=== PATIENT | female | born 1975 | race Caucasian/White ===

== ENCOUNTER 2022-12-26 07:34 | Emergency (ER) | payer SELFPAY ==
[2022-12-26] MEDS ORDERED: Dexamethasone 10 MG/ML VIAL ONE (09:08)
== END 2022-12-26 09:15 | disposition home or self-care (01) ==
LOC: BURERS 07:34
DX: J06.9 Acute upper respiratory infection, unspecified (principal)
CPT/HCPCS: 71045; 87804; 96372; J1100

== ENCOUNTER 2023-07-31 10:53 | Emergency (ER) | payer OTHER | END 2023-07-31 11:25 | disposition home or self-care (01) | LOC: BURERS 10:53 | DX: H60.501 Unspecified acute noninfective otitis externa, right ear (principal); I10 Essential (primary) hypertension | CPT/HCPCS: 99282 ==

== ENCOUNTER 2023-08-30 12:18 | Emergency (ER) | payer OTHER | END 2023-08-30 12:49 | disposition home or self-care (01) | LOC: BURERS 12:18 | DX: H92.01 Otalgia, right ear (principal); I10 Essential (primary) hypertension | CPT/HCPCS: 99283 ==

== ENCOUNTER 2023-12-30 10:14 | Emergency (ER) | payer OTHER | END 2023-12-30 10:38 | disposition home or self-care (01) | LOC: BURERS 10:14 | DX: J04.0 Acute laryngitis (principal); J06.9 Acute upper respiratory infection, unspecified; I10 Essential (primary) hypertension | CPT/HCPCS: 99283 ==

== ENCOUNTER 2024-01-29 14:16 | Emergency (ER) | payer OTHER | END 2024-01-29 14:45 | disposition home or self-care (01) | LOC: BURERS 14:16 | DX: J18.0 Bronchopneumonia, unspecified organism (principal); I10 Essential (primary) hypertension | CPT/HCPCS: 99283 ==

== ENCOUNTER 2024-02-07 13:03 | Emergency (ER) | payer OTHER ==
[~2024-02-07 13:03] MED LIST: Iopamidol 370 76% 100 ML VIAL ONE
[2024-02-07] MEDS ORDERED: Ketorolac Tromethamine 30 MG (1 mL) VIAL ONE (13:21)
[2024-02-07 13:36] LABS: #Basophils 0.1 thou/uL (0.0-0.2); #Eosinophils 0.3 thou/uL (0.0-0.7); #Lymphocytes 1.1 thou/uL (1.20-3.40); #Monocytes 0.6 thou/uL (0.11-0.59); #Neutrophils 3.9 thou/uL (1.40-6.50); %Basophils 1.1 % (0.0-1.0); %Eosinophils 5.1 % (0.0-10.0); %Neutrophils 64.8 % (42.0-75.0); Hematocrit 41.2 % (36.0-47.0); Hemoglobin 13.8 g/dL (12.0-16.0); Mean Corpuscular HGB CONC 33.6 g/dL (32.0-36.0); Mean Corpuscular Hemoglobin 30.6 pg (27.0-31.0); Mean Corpuscular Volume 91.1 fl (78.0-98.0); Mean Platelet Volume 7.7 fL (7.4-10.4); Platelet Count 287 10x3/uL (130-400); RBC Distribution Width 10.6 % (11.5-14.5); Red Blood Cell (RBC) Count 4.52 mill/uL (4.20-5.40)
== END 2024-02-07 14:55 | disposition home or self-care (01) ==
LOC: BURERS 13:03
DX: R09.1 Pleurisy (principal); I10 Essential (primary) hypertension
CPT/HCPCS: 71275; 85025; 96374; J1885; Q9967